=== PATIENT | male | born 1975 | race African-American/Black ===

== ENCOUNTER 2022-04-12 10:51 | Emergency (ER) | payer OTHER, SELFPAY ==
--- NOTE | ~2022-04-12 | XR_ITS ---
EXAMINATION: XR shoulder LT min 2V DATE: 04/12/2022 12:06 INDICATION: Chronic left shoulder pain. TECHNIQUE: 4 views of left shoulder were obtained. COMPARISON: None. FINDINGS: Bone alignment is normal. No fracture. There is mild osteoarthritis of glenohumeral joint a nd acromioclavicular joint. IMPRESSION: 1. Mild polyarticular osteoarthritis. Reviewed, dictated and finalized at location B.
[2022-04-12 11:16] VITALS: BP 137/81; PULSE 67; RESP 18; TEMP 36.6; O2SAT 99
--- NOTE | 2022-04-12 11:27 | ED.LOWEXIN ---
HPI - Extremity Injury (Lower) General Chief Complaint: Extremity Injury, Upper Stated Complaint: Lt Shoulder,Lt Groin Pain Time Seen by Provider: 04/12/22 11:27 Source: patient Mode of arrival: ambulatory Limitations: no limitations History of Present Illness HPI Narrative: 46 yo M presents with c/o L groin pain for 1 wk. Reports injured while weight lifting. Rested and pain improved then started weight lifting again and pain came back but now worse. Pain worse with movemnt. No pain when standing or ambulatory. No pain with lifting. Also reports pain to L shoulder for approx. 20 yrs but pain is worse and to a different spot than it was before. Pt is very active, works out daily. Denies shoulder injury. All systems reviewed and negative except as noted above. Related Data Home Medications Medication Instructions Recorded Confirmed Hyzaar 04/12/22 allopurinol 04/12/22 Allergies Allergy/AdvReac Type Severity Reaction Status Date / Time No Known Allergies Allergy Verified 04/12/22 11:30 Review of Systems Review of Systems: CONSTITUTIONAL: Denies fever, chills, or sweats. EYES: Denies visual changes, redness, or discharge. ENT: Denies rhinorrhea, congestion, sore throat, or otalgia. CARDIOVASCULAR: Denies chest pain, palpitations, or edema. RESPIRATORY: Denies cough or dyspnea. GASTROINTESTINAL: Denies abdominal pain, nausea, vomiting, or diarrhea. GENITOURINARY: Denies dysuria or hematuria. SKIN: Denies rash or itching. MUSCULOSKELETAL: Denies back pain, joint pain, or myalgia. Reports left groin pain and left shoulder pain. NEUROLOGIC: Denies headache, numbness, or weakness. PSYCHIATRIC: Denies anxiety or depression. All other systems reviewed are negative, except as documented in HPI. PMFSH Comments At time of signature, agree with nursing past medical, surgical, social and family history. There is no relevant family history pertinent to the presenting complaint. Exam Narrative: GENERAL: This is a well-nourished, well-developed patient, in no apparent distress. HEAD: normocephalic, atraumatic. EYES: PERRL. Sclera clear/white. Vision is grossly intact. EARS: External ears normal NOSE: External nose normal NECK: Neck supple, non-tender without lymphadenopathy, masses or thyromegaly. CARDIOVASCULAR: Regular rate and rhythm without murmurs, gallops, or rubs. RESPIRATORY: Clear to auscultation. Breath sounds equal bilaterally. No wheezes, rales, or rhonchi. GASTROINTESTINAL: Abdomen soft, non-tender, nondistended. Bowel sounds are active. No hepato-splenomegaly, or palpable masses. No guarding. No hernias noted. SKIN: warm, Dry, intact with no suspicious lesions or rash, good texture and turgor. NEURO: awake, alert, and oriented to person, place and time. There were no obvious focal neurologic abnormalities. EXTREMITIES: Tenderness to the left inguinal muscle. Pain with abduction of left leg. Pain on palpation of left AC joint. Full range of motion to left shoulder. Strength to all extremities 5 out of 5. Course Course Level of Care: Express Care Visit Vital Signs Vital signs: Vital Signs Temperature 36.6 C 04/12/22 11:16 Pulse Rate 67 04/12/22 11:16 Respiratory Rate 18 04/12/22 11:16 Blood Pressure 137/81 04/12/22 11:16 Pulse Oximetry 99 04/12/22 11:16 Oxygen Delivery Room Air 04/12/22 11:16 Temperature 36.6 C 04/12/22 11:16 Pulse Rate 67 04/12/22 11:16 Respiratory Rate 18 04/12/22 11:16 Blood Pressure 137/81 04/12/22 11:16 Pulse Oximetry 99 04/12/22 11:16 Oxygen Delivery Room Air 04/12/22 11:16 Reviewed MDM - Extremity Injury (Lower) MDM Narrative Medical decision making narrative: Patient is aware of diagnosis, understands and agrees to treatment plan. Anticipatory guidance given. Patient agrees to follow-up as directed and is aware of reasons to seek care at the emergency department. Portions of this record may have been created with voice re
== END 2022-04-12 12:40 | disposition home or self-care (01) ==
PROVIDERS: Emergency Provider Nurse Practitioner Family
DX: M19.012 Primary osteoarthritis, left shoulder (principal); S39.011A Strain of muscle, fascia and tendon of abdomen, initial encounter; X50.0XXA Overexertion from strenuous movement or load, initial encounter; Y93.9 Activity, unspecified; I10 Essential (primary) hypertension; M10.9 Gout, unspecified
CPT/HCPCS: 73030; 99203; G0463